=== PATIENT | female | born 1975 | race African-American/Black ===

== ENCOUNTER 2020-01-26 08:30 | Inpatient (IN) | payer OTHER ==
[2020-01-26] MEDS: ELECTROLYTE-148 SOLN 1,000 ML IV SCH ×2 (09:00→10:13)
--- NOTE | 2020-01-26 09:22 | HP ---
Past Medical History - Primary Care Physician PCP:: Daniel Van - Admission Chief Complaint: 44yo P0 with at EGA 37w4d and prior h/o myomectomy, admitted for primary C/section. History Source: Patient, Medical Record Limitations to Obtaining History: No Limitations - Past Medical History CT TECH: No: Alzheimer's, CVA, Dementia, Migraine, Multiple Sclerosis, Peripheral Neuropathy, Parkinson's, Seizure, Syncope, TIA, Vertigo, Other Cardiovascular: No: AFIB, Aneurysm, Aortic Insufficiency, Aortic Stenosis, CAD, CHF, Deep Vein Thrombosis, HTN, Hyperlipdemia, UT, Mitral Insufficiency, Mitral Stenosis, Murmur, Pulmonary Hypertension, Other Pulmonary: No: Asthma, Bronchitis, Cancer, COPD, O2 Dependent, Pneumonia, Previously Intubated, Pulmonary Embolus, Pulmonary Fibrosis, Sleep Apnea, Other Gastrointestinal: No: Ascites, Cancer, Constipation, Crohn's Disease, Diverticulitis, Diverticulosis, Esophageal Varices, Gastritis, GERD, GI Bleed, Hemorrhoids, Hiatal Hernia, Inflamatory Bowel Disease, Irritable Bowel Disease, Pancreatitis, Peptic Ulcer Disease, Ulcerative Colitis, Other Hepatobiliary: No: Cirrhosis, Cholelithiasis, Cholecystitis, Choledocholithiasis, Hepatitis A, Hepatitis B, Hepatitis C, Other Renal/: No: Renal Failure, Renal Inusuff, BPH, Cancer, Hematuria, Hemodialysis, Neurogenic Bladder, Renal Calculi, UTI, Other Reproductive: Yes: Fibroids ...: 1 ...Para: 0 ... Weeks Gestation by Dates: 37.4 ...EDC by Sono: 02/12/20 Heme/Onc: No: Anemia, B12 Deficiency, Bleeding Disorder, Cancer, Current Chemotherapy, Current Radiation Therapy, Hemochromatosis, Hypercoaguable State, Myeloproliferative Synd, Sickle Cell Disease, Sickle Cell Trait, Thrombocytopenia, Other Infectious Disease: No: AIDS, C-Diff, Herpes Zoster, HIV, MRSA, STD's, Tuberculosis, VREF, Other Psych: No: Addictions, Anxiety, Bipolar, Depression, Panic, Psychosis, Schizophrenia, Other Musculoskeletal: No: Bursitis, Chronic low back pain, Hemiparesis, Hemiplegia, Osteoarthritis, Paraplegia, Other Rheumatology: No: Fibromyalgia, Gout, Lupus, Rheumatoid Arthritis, Sarcoidosis, Vasculitis, Other ENT: No: Allergic Rhinitis, Sinusitis, Other Endocrine: No: [place]'s Disease, [place]'s Disease, Diabetes Insipidus, Diabetes Mellitus, Hyperparathyroidism, Hyperthyroidism, Hypothyroidism, Osteopenia, SIADH, Other Dermatology: No: Basal Cell, Cellulitis, Eczema, Melanoma, Psoriasis, Squamous Cell, Other - Past Surgical History Hx Myomectomy: Yes Hx Transabdominal Cerclage: No - Advance Directives Advance Directives: No: Living Will, Health Care Proxy, DNR, Organ Donor, Tissue Donor, MOLST - Smoking History Smoking history: Never smoked Have you smoked in the past 12 months: No - Alcohol/Substance Use Hx Alcohol Use: No History of Substance Use: reports: None - Social History Usual Living Arrangement: Yes: With Spouse Do you think of yourself as: Straight/Heterosexual ADL: Independent History of Recent Travel: No Home Medications - Allergies Allergies/Adverse Reactions: Allergies Allergy/AdvReac Type Severity Reaction Status Date / Time codeine Allergy Unknown Vomiting Verified 01/26/20 09:01 seafood Allergy Severe Difficulty Uncoded 01/26/20 09:01 Breathing Family Medical History Family Hx Cancer: Father (prostate) Family Hx Diabetes: Mother Review of Systems - Review of Systems Constitutional: reports: No Symptoms Eyes: reports: No Symptoms HENT: reports: No Symptoms Neck: reports: No Symptoms Cardiovascular: reports: No Symptoms Respiratory: reports: No Symptoms Gastrointestinal: reports: No Symptoms Genitourinary: reports: No Symptoms Breasts: reports: No Symptoms Reported Musculoskeletal: reports: No Symptoms Integumentary: reports: No Symptoms Neurological: reports: No Symptoms Endocrine: reports: No Symptoms Hematology/Lymphatic: reports: No Symptoms Psychiatric: reports: No Symptoms Pain Intensity: 0 Physical Exam - Maternity Constitutional: Yes: Well Nourished, No Distress, Calm Eyes: Yes: WNL, Conjunctiva Clear, EOM Intact HENT: Yes: WNL, Atraumatic, Normocephalic Neck: Yes: WNL, Supple, Trachea Midline Cardiovascular: Yes: WNL, Regular Rate and Rhythm Lungs: Clear to auscultation, Normal air movement - Abdominal Exam/OB Fundal Height: 39 Number of Fetuses: Single Presentation: Vertex Contractions: No Monitor Mode: External Heart Rate (range): 140 Heart Rate Location: Midline Category: I Accelerations: Non-Uniform Decelerations: None - Vaginal Exam/OB Vaginal Bleeding: No Speculum Exam: No Presentation: Vertex/Position - Physical Exam Musculoskeletal: Yes: WNL Extremities: Yes: WNL Integumentary: Yes: WNL Deep Tendon Reflex Grade: Normal +2 ...Motor Strength: WNL Psychiatric: Yes: WNL, Alert, Oriented Hemorrhage Risk Assessment - Risk Factors Medium Risk Factors: Yes: Prior , uterine surgery,or multiple laparotomies High Risk Factors: Yes: None Risk Score: 1 Risk Level: Medium Risk Imaging - Results Ultrasound: Report Reviewed Assessment/Plan 44yo P0 with at EGA 37w4d and prior h/o myomectomy, admitted for primary C/section. We discussed the risks and benefits of C/S at length, including but not limited to scarring, pain, bleeding, infection, injury to underlying organs and structures, need for additional surgery to repair/treat any problems or complications, complications/injuries, etc. The pt verbalized her understanding and requested to proceed with surgery. The pt is aware that all surgeries have risks and no guarantees can be provided.
[2020-01-26 09:24] VITALS: BMI 32.4
[2020-01-26] MEDS ORDERED: ENOXAPARIN NA (PORCINE) 40 MG/0.4 ML DISP.SYRIN SQ SCH (10:00)
[2020-01-26] MEDS ORDERED: OXYTOCIN 20 UNITS in 0.9% NS 20 UNIT/1,000 ML INFUS.BAG IV ONE ×2 (10:15→12:52)
[2020-01-26] MEDS ORDERED: morphine SULFATE/PF 0.5 MG/ML (2cc Syringe - QUVA) ONE (10:27)
[2020-01-26] MEDS ORDERED: ceFAZolin SODIUM 1 GM VIAL ONE (10:27)
[2020-01-26] MEDS ORDERED: DEXAMETHASONE SOD PHOSPHATE 4 MG/1 ML VIAL ONE (10:27)
[2020-01-26] MEDS ORDERED: KETOROLAC TROMETHAMINE 30 MG/1 ML VIAL ONE (11:23)
[2020-01-26] MEDS ORDERED: OXYTOCIN 10 UNITS/ML VIAL ONE (11:23)
[2020-01-26] MEDS: OXYTOCIN 20 UNITS in 0.9% NS 20 UNIT/1,000 ML INFUS.BAG IV SCH ×2 (11:30→12:57)
[2020-01-26 11:46] LABS: CORD BASE EXCESS -6.8 mmol/L (0-2); CORD HCO3 20.9 mmHg (20-29); CORD PCO2 49.5 mmHg (30-78); CORD pH 7.243 (7.14-7.44)
[2020-01-26 11:47] LABS: CORD BASE EXCESS -7.5 mmol/L (0-2); CORD HCO3 19.7 mmHg (20-29); CORD PCO2 46.2 mmHg (30-78); CORD pH 7.248 (7.14-7.44)
[2020-01-26] MEDS ORDERED: BENZOCAINE 20% 57 GM BOTTLE TP PRN (11:59)
[2020-01-26] MEDS ORDERED: METHYLERGONOVINE MALEATE 0.2 MG/1 ML AMP IM PRN (11:59)
[2020-01-26] MEDS ORDERED: BENZOCAINE 28 GM HEMORRHOIDAL OINTMENT TP PRN (11:59)
[2020-01-26] MEDS ORDERED: WITCH HAZEL 50% (TUCKS) 40 PAD/JAR PAD TP PRN (11:59)
[2020-01-26] MEDS ORDERED: IBUPROFEN 800 MG/8 ML IJ IVPB PRN (11:59)
[2020-01-26] MEDS ORDERED: oxyCODONE HCL 5 MG TABLET PO PRN (11:59)
[2020-01-26] MEDS ORDERED: ACETAMINOPHEN 1000 MG/100 ML VIAL (NON FORMULARY) IVPB PRN (12:09)
--- NOTE | 2020-01-26 12:15 | OP ---
Operative Note - Note: Operative Date: 01/26/20 Pre-Operative Diagnosis: at EGA 37w4d. Prior myomectomy Operation: Primary LT C/S Findings: Live baby boy in vtx presentation, no meconium in amniotic fluids, 9-9, Wt 6lb 5 oz, uterus with several fibroids, normal Fallopian tubes & ovaries. Post-Operative Diagnosis: Same as Pre-op Surgeon: Daniel Van Vp Of Marketing: Ariela Lawrence Anesthesiologist/SALON COORDINATOR: Jaylyn Rico Anesthesia: Spinal Specimens Removed: Placenta Estimated Blood Loss (mls): 600 Drains & Tubes with Location: Galarza catheter Drains, Volume Out (mls): 200 Blood Volume Replaced (mls): 0 Fluid Volume Replaced (mls): 2,000 Operative Report Dictated: Yes
[2020-01-26] MEDS ORDERED: ONDANSETRON 4 MG/2 ML VIAL IVPB ONE (16:26)
--- NOTE | 2020-01-26 21:26 | OP ---
DATE OF OPERATION: 01/26/2020 PREOPERATIVE DIAGNOSES: at estimated gestational age of 37 weeks and 4 days, previous uterine myomectomy, advanced maternal age, fibroid uterus. POSTOPERATIVE DIAGNOSES: at estimated gestational age of 37 weeks and 4 days, previous uterine myomectomy, advanced maternal age, fibroid uterus. PROCEDURE: Primary low transverse section via Pfannenstiel skin incision. SURGEON: Daniel Van MD DUMPER: Ariela Lawrence MD ANESTHESIOLOGIST: LUC Amaya ANESTHESIA: Spinal. COMPLICATIONS: None. ESTIMATED BLOOD LOSS: 600 mL. INTRAVENOUS FLUIDS: 2000 mL. URINE OUTPUT: Clear urine 200 mL at the end of the procedure. PATHOLOGY: Placenta. FINDINGS: Live baby boy in vertex presentation. No meconium in amniotic fluids. Apgars 9 and 9. Baby's weight 6 pounds and 5 ounces. Gravid uterus with several fibroids. Normal fallopian tubes and ovaries. DESCRIPTION OF PROCEDURE: The patient was met preoperatively. Risks, benefits, and alternatives of surgery were discussed in details. The consent form was reviewed and discussed. The patient verbalized her understanding and requested to proceed with the surgery. The patient was brought to the OR with the IV running. She was placed on a surgical table in the sitting position. The spinal anesthesia was achieved without difficulty. The patient was placed in a supine position with a leftward tilt. She was prepped and draped in the usual sterile fashion. A Galarza catheter was left to drain to gravity. A timeout procedure was conducted as per standard protocol. The surgeons then proceeded with the operation. A Pfannenstiel skin incision was made with the knife along the prior scar, approximately 2 cm above the pubic symphysis. The incision was carried down to the level of fascia. The fascia was incised in the midline, and the incision was extended bilaterally using Hensley scissors. The fascia was dissected away from the rectus muscles superiorly and inferiorly using sharp dissection. The rectus muscles were in the midline using sharp dissection. The peritoneum was identified and entered sharply. The peritoneal incision was extended superiorly and inferiorly using Metzenbaum scissors. The bladder peritoneum was incised and dissected away from the lower uterine segment using sharp dissection. The bladder was then reflected downwards using a [place] retractor. The uterus was incised transversely in the lower uterine segment. The uterine incision was extended bilaterally using bandage scissors. The baby was delivered from vertex presentation without any complications. The baby was crying spontaneously, and the umbilical cord was clamped and cut. The baby was handed to the awaiting kosher dietary service manager. The placenta was then delivered by manual extraction without complications. The uterine cavity was cleared of all clots and debris using moist laparotomy laps. The uterine incision was repaired using a 0 Biosyn suture with a running locking stitch. Good hemostasis was noted. The uterine incision was then imbricated using a 0 Biosyn suture with good hemostasis. The bladder peritoneum was restored using a 0 Biosyn suture. The operative site was irrigated using copious amounts of normal saline. The saline was aspirated, and good hemostasis was confirmed. The parietal peritoneum was then repaired using a 2-0 chromic suture. The rectus muscles were reapproximated using several interrupted 2-0 chromic sutures. The fascia was closed using a 0 Vicryl suture with a running stitch. The adipose tissues and Malachi fascia were approximated using several interrupted 0 Vicryl sutures. The skin was closed with a 3-0 Vicryl suture using a subcutaneous stitch. Sponge, laps, needle counts, and instruments were correct. The patient tolerated the procedure well and was transferred to recovery room in stable condition and awake. Audra [id number]
--- NOTE | 2020-01-27 08:30 | PN ---
Progress Note (short form) - Note Progress Note: POD #1 s/p primary c/s under spinal anesthesia with intrathecal duramorph. Doing well, mild puritus, pain controlled, all questions answered.
[2020-01-27 09:34] LABS: BASO % 0.2 % (0-2.0); EOS % 0.2 % (0-4.5); HEMATOCRIT 30.3 % (32.4-45.2); HEMOGLOBIN 9.9 GM/dL (10.7-15.3); LYMPH % 10.4 % (8-40); MCH 30.5 pg (25.7-33.7); MCHC 32.5 g/dl (32.0-36.0); MEAN CELL VOLUME 93.8 fl (80-96); MEAN PLT VOLUME 10.4 fl (7.5-11.1); MONO % 9.4 % (3.8-10.2); NEUT % 79.8 % (42.8-82.8); PLATELET COUNT 194 K/MM3 (134-434); RBC 3.23 M/mm3 (3.60-5.2); RDW 14.4 % (11.6-15.6); WHITE BLOOD COUNT 17.6 K/mm3 (4.0-10.0)
[2020-01-27] MEDS: PRENATAL VITAMINS W/ FOLIC ACID TABLET (FP) PO SCH (10:44)
[2020-01-27] MEDS: ENOXAPARIN NA (PORCINE) 40 MG/0.4 ML DISP.SYRIN SQ SCH (10:45)
[2020-01-27] MEDS ORDERED: BISACODYL 10 MG SUPP.RECT RC PRN (11:59)
[2020-01-27] MEDS: IBUPROFEN 600 MG TABLET (FP) PO PRN (15:51)
[2020-01-27] MEDS: SIMETHICONE 80 MG TAB.CHEW (FP) PO PRN (15:51)
[2020-01-28] MEDS: SIMETHICONE 80 MG TAB.CHEW (FP) PO PRN (02:03)
[2020-01-28] MEDS: IBUPROFEN 600 MG TABLET (FP) PO PRN ×2 (02:03→11:13)
--- NOTE | 2020-01-28 09:10 | PN ---
Post Progress Note - Subjective Subjective: Patient without acute complaints. Reports tolerating oral intake without nausea or vomiting. Ambulating without dizziness. Denies fevers or chills. Pain well controlled with oral pain medication. without difficulty. Passing flatus. Post Day: 2 Type of Delivery: Primary C/S Vital Signs: Vital Signs Temperature 98.1 F 01/27/20 22:00 Pulse Rate 73 01/27/20 22:00 Respiratory Rate 20 01/27/20 22:00 Blood Pressure 105/47 L 01/27/20 22:00 O2 Sat by Pulse Oximetry (%) 99 01/26/20 13:36 Breast Exam: Yes: Soft Uterus: Yes: Fundus Firm, Fundus below umbilicus Incision: Yes: Dressing dry and intact Abdomen/GI: Yes: Abdomen soft, Tender (mild incisional), Passing flatus, Tolerating PO. No: Abdominal Distention Lochia: Yes: Rubra Lochia, amount: Small Extremities: Yes: Calves non-tender, Edema (trace) Activity: Ambulating - Labs Labs: CBC WBC 17.6 K/mm3 (4.0-10.0) H 01/27/20 07:37 RBC 3.23 M/mm3 (3.60-5.2) L 01/27/20 07:37 Hgb 9.9 GM/dL (10.7-15.3) L 01/27/20 07:37 Hct 30.3 % (32.4-45.2) L 01/27/20 07:37 MCV 93.8 fl (80-96) 01/27/20 07:37 MCH 30.5 pg (25.7-33.7) 01/27/20 07:37 MCHC 32.5 g/dl (32.0-36.0) 01/27/20 07:37 RDW 14.4 % (11.6-15.6) 01/27/20 07:37 Plt Count 194 K/MM3 (134-434) D 01/27/20 07:37 MPV 10.4 fl (7.5-11.1) 01/27/20 07:37 Absolute Neuts (auto) 14.1 K/mm3 (1.5-8.0) H 01/27/20 07:37 Neutrophils % 79.8 % (42.8-82.8) 01/27/20 07:37 Lymphocytes % 10.4 % (8-40) D 01/27/20 07:37 Monocytes % 9.4 % (3.8-10.2) 01/27/20 07:37 Eosinophils % 0.2 % (0-4.5) 01/27/20 07:37 Basophils % 0.2 % (0-2.0) 01/27/20 07:37 Nucleated RBC % 0 % (0-0) 01/27/20 07:37 Assessment/Plan 44 yo POD # 2 s/p primary CD, afebrile, vital signs stable, doing well 1. Continue routine postoperative care. 2. Encourage ambulation and incentive spirometer use 3. Continue oral pain medication 4. Patient states desires circumcision for . Discussed risks including infection, bleeding, damage to tip of penis, and unsatisfactory result, resulting in surgical repair or repeat circumcision. Patient expressed understanding and consents to procedure. Reviewed infants chart, cleared for circumcision and normal genitalia per jet engine mechanic, Dr. Lima 5. Anticipate discharge home POD # 3
--- NOTE | 2020-01-28 09:27 | DS ---
Physical Exam-CHILD CARE SUPERVISOR Vital Signs: Vital Signs Temperature 98.1 F 01/27/20 22:00 Pulse Rate 73 01/27/20 22:00 Respiratory Rate 20 01/27/20 22:00 Blood Pressure 105/47 L 01/27/20 22:00 O2 Sat by Pulse Oximetry (%) 99 01/26/20 13:36 Labs: CBC, BMP 01/27/20 07:37 Delivery - Delivery Type of Anesthesia: Spinal Episiotomy/Laceration: None EBL (cc): 600 Delivery, Single - Stages of Labor Date of Delivery: 01/26/20 Time of Delivery: 11:10 Time Placenta Delivered: 11:11 - Condition of Infant Analyst Competitive Intelligence/Airline Station Agent Present: Yes Name: Isa Cheek Infant Gender: Male Weight: 6 lb 5 oz Total Hours ROM (Hrs/Mins): 0/01 - 1 Minute Total Score: 9 5 Minutes Total Score: 9 - Feeding Plan Initial Plan: Exclusive throughout hospitalization Discharge Summary Problems reviewed: Yes Reason For Visit: Current Active Problems Anemia (Acute) delivery delivered (Acute) Hx of myomectomy (Acute) w/ hx of uterine myomectomy (Acute) Procedures: Principal: delivery Hospital Course: Patient was admitted for routine delivery POD # 1 patient ambulated, voiding, passing gas, tolerating oral intake and with adequate pain control. Noted to have mild asymptomatic anemia She fulfilled all criteria for discharge POD #3 Condition: Good - Instructions Diet, Activity, Other Instructions: Follow up in 1-2 weeks for incision check; 4-6 wks for visit Physical activity Resume your normal everyday activity as tolerated no heavy lifting or exercise until seen by your surgeon. You may walk unlimited ina of and climb stairs. You may resume driving the car when you feel safe and comfortable behind the wh eel. No sexual activity as instructed. Wound care If you have a bandage, leave it on, and keep dry for 48-72 hours. After that time discard the outer bandage. If they are tapes on the skin under the out of bandage leave them in place. They will peel off in the next 7 to 10 days. Do Not Peel them off. You may shower the day after surgery. If there are tapes present on the skin, you may shower over them. Diet There are no dietary restrictions. Eat healthy, high-fiber foods. Drink 6 to 8 glasses of liquid each day. This will assist in keeping your bowels are regular. Pain management You may take Tylenol or acetaminophen or Ibuprofen (for example, Motrin, Advil etc.) from my pain prescription medication is ordered should be taken as prescribed for moderate to severe pain. Call MD for any of the following: Severe pain not relieved by medication Fever of 101 or higher Excessive bleeding or drainage on dressing Inability to urinate Referrals: Daniel Van MD [Staff Physician] - Disposition: HOME
[2020-01-28] MEDS: ENOXAPARIN NA (PORCINE) 40 MG/0.4 ML DISP.SYRIN SQ SCH (11:12)
[2020-01-28] MEDS: PRENATAL VITAMINS W/ FOLIC ACID TABLET (FP) PO SCH (11:13)
[2020-01-29] MEDS: IBUPROFEN 600 MG TABLET (FP) PO PRN (04:31)
[2020-01-29] MEDS: SIMETHICONE 80 MG TAB.CHEW (FP) PO PRN (04:32)
[2020-01-29 08:08] LABS: BASO % 0.4 % (0-2.0); EOS % 1.5 % (0-4.5); HEMATOCRIT 28.1 % (32.4-45.2); HEMOGLOBIN 9.4 GM/dL (10.7-15.3); LYMPH % 13.4 % (8-40); MCH 30.7 pg (25.7-33.7); MCHC 33.3 g/dl (32.0-36.0); MEAN CELL VOLUME 92.1 fl (80-96); MEAN PLT VOLUME 9.8 fl (7.5-11.1); MONO % 8.2 % (3.8-10.2); NEUT % 76.5 % (42.8-82.8); PLATELET COUNT 239 K/MM3 (134-434); RBC 3.05 M/mm3 (3.60-5.2); RDW 14.5 % (11.6-15.6); WHITE BLOOD COUNT 15.4 K/mm3 (4.0-10.0)
[2020-01-29] MEDS: ENOXAPARIN NA (PORCINE) 40 MG/0.4 ML DISP.SYRIN SQ SCH (09:49)
[2020-01-29] MEDS: PRENATAL VITAMINS W/ FOLIC ACID TABLET (FP) PO SCH (09:50)
[2020-01-29 09:54] VITALS: BP 114/76; PULSE 71; TEMP 98.4
--- NOTE | 2020-01-30 17:08 | PATH ---
Surgical Pathology Report Patient Name: AMILCAR BIRMINGHAM Med. Rec. #: [id number] /Age/Gender: 1975 (Age: 44) / F Account: [id number] Location: [facility] OBS/FINANCE PROFESSIONAL Taken: 01/26/2020 Received: 01/27/2020 Reported: 01/30/2020 Physicians: Daniel Van M.D. Specimen(s) Received PLACENTA Clinical History Final Diagnosis PLACENTA, SECTION: 350 G THIRD TRIMESTER PLACENTA WITH TRIVASCULAR UMBILICAL CORD AND UNREMARKABLE PLACENTAL MEMBRANES. Electronically Signed Brittanie Myers M.D. Gross Description The specimen is received fresh labeled placenta and is a 350 gram, 17.5 x 14.0 x 2.5 cm. placenta with attached membranes and umbilical cord. The attached membranes are whitley, translucent with focal opacities and insert marginally. The umbilical cord measures 10 cm. in length and averages 1 cm. in diameter. The cord inserts centrally. No true knots or strictures are identified. Cut surface of the umbilical cord reveals 3 vessels. The surface is ortiz-blue with minimal fibrin deposition and appropriate caliber vessels. The maternal surface is red-brown with focal defects. Sectioning reveals red-brown, spongy parenchyma. No lesions are identified. Night Custodian sections are submitted in three cassettes as follows: 1- membrane rolls and umbilical cord; 2-3- full thickness sections of placenta. 01/29/2020 [facility]01/29/2020
== END 2020-01-29 15:35 | disposition home or self-care (01) | DRG 540 ==
LOC: JLDR 08:30 → J3W 13:30
PROVIDERS: ADMIT Obstetrics & Gynecology; ATTEND Obstetrics & Gynecology
PROC: 10D00Z1 Extraction of Products of Conception, Low, Open Approach (ICD-10-PCS; principal; 2020-01-26)
DX: O82 Encounter for cesarean delivery without indication (principal); O34.211 Maternal care for low transverse scar from previous cesarean delivery; O34.13 Maternal care for benign tumor of corpus uteri, third trimester; D25.9 Leiomyoma of uterus, unspecified; Z3A.37 37 weeks gestation of pregnancy; Z37.0 Single live birth; O90.81 Anemia of the puerperium; D64.9 Anemia, unspecified; Z88.5 Allergy status to narcotic agent; Z91.013 Allergy to seafood
CPT/HCPCS: 36415; 36600; 82803; 85025; 88307-TC